=== PATIENT | male | born 1970 | race Caucasian/White ===

== ENCOUNTER 2016-09-04 15:44 | Emergency (ER) | payer BC ==
[2016-09-04] MEDS ORDERED: ASPIRIN 81 MG TABLET, CHEWABLE PO ONE (16:05)
--- NOTE | 2016-09-04 16:08 | ER Document Report ---
ED Medical Screen (RME) - General Stated Complaint: CHEST PAIN,NUMBNESS Notes: patient states he blacked out twice yesterday, is also having chest pain, numbness to hands and feet and nausea. Denies shortness of breath. Patient states he is experiencing some constipation, and occasionally sees blood in his stool, but denies that is what he is in the emergency room for. Patient states he has been told he has high blood pressure in the past, but is not on medications. I have greeted and performed a rapid initial assessment of this patient. A comprehensive ED assessment and evaluation of the patient, analysis of test results and completion of the medical decision making process will be conducted by additional ED providers. TRAVEL OUTSIDE OF THE [place] IN LAST 30 DAYS: No - Related Data Allergies/Adverse Reactions: Penicillins Allergy (Severe, Verified 09/04/16 16:03) Past Medical History - Past Medical History Cardiac Medical History: Reports: Hx Hypertension - not on meds Denies: Hx Coronary Artery Disease, Hx Heart Attack Pulmonary Medical History: Reports: Hx COPD - 10/2013 Denies: Hx Asthma, Hx Bronchitis, Hx Pneumonia Neurological Medical History: Denies: Hx Cerebrovascular Accident, Hx Seizures Musculoskeltal Medical History: Denies Hx Arthritis Psychiatric Medical History: Denies: Hx Depression Past Surgical History: Reports: Hx Appendectomy. Denies: Hx Pacemaker - Immunizations Hx Diphtheria, Pertussis, Tetanus Vaccination: Yes Physical Exam - Vital signs Vitals: Temp Pulse Resp BP Pulse Ox 98.4 F 91 18 146/103 H 95 09/04/16 15:54 09/04/16 15:54 09/04/16 15:54 09/04/16 15:54 09/04/16 15:54 - Cardiovascular Rhythm: Regular Heart sounds: Normal auscultation Course - Vital Signs Vital signs: Temp Pulse Resp BP Pulse Ox 98.4 F 91 18 146/103 H 95 09/04/16 15:54 09/04/16 15:54 09/04/16 15:54 09/04/16 15:54 09/04/16 15:54
[2016-09-04 16:48] LABS: ABSOLUTE EOSINOPHILS # (AUTO) 0.4 10^3/uL (0.0-0.6); ABSOLUTE LYMPHOCYTES (AUTO) 1.8 10^3/uL (0.5-4.7); ABSOLUTE MONOCYTES (AUTO) 0.7 10^3/uL (0.1-1.4); ABSOLUTE NEUT (AUTO) 6.9 10^3/uL (1.7-8.2); BASOPHILS % (AUTO) 0.3 % (0-2); EOSINOPHILS % (AUTO) 3.8 % (0-6); HEMATOCRIT 43.3 % (37.9-51.0); HEMOGLOBIN 14.8 g/dL (13.5-17.0); HGB HCT DIFFERENCE 1.1; LYMPHOCYTES % (AUTO) 18.4 % (13-45); MEAN CORPUSCULAR HEMOGLOBIN 29.7 pg (27.0-33.4); MEAN CORPUSCULAR HGB CONC 34.3 g/dL (32.0-36.0); MEAN CORPUSCULAR VOLUME 87 fl (80-97); MONOCYTES % (AUTO) 6.7 % (3-13); RED BLOOD COUNT 4.99 10^6/uL (4.35-5.55); RED CELL DISTRIBUTION WIDTH 13.8 % (11.5-14.0); SEGMENTED NEUTROPHILS % (AUTO) 70.8 % (42-78); WHITE BLOOD COUNT 9.7 10^3/uL (4.0-10.5)
[2016-09-04 17:00] LABS: APPEARANCE,URINE CLEAR; BILIRUBIN,URINE NEGATIVE (NEGATIVE); GLUCOSE, URINE NEGATIVE (NEGATIVE); KETONES,URINE NEGATIVE (NEGATIVE); LEUKOCYTE ESTERASE,URINE NEGATIVE (NEGATIVE); NITRITE,URINE NEGATIVE (NEGATIVE); PROTEIN,URINE NEGATIVE (NEGATIVE); URINE SPECIFIC GRAVITY 1.029; UROBILINOGEN,URINE NEGATIVE mg/dL (<2.0)
[2016-09-04 17:05] LABS: ALANINE AMINOTRANSFERASE 38 U/L (21-72); ALBUMIN 4.1 g/dL (3.5-5.0); ALKALINE PHOSPHATASE 83 U/L (38-126); ANION GAP 13 (5-19); ASPARTATE AMINO TRANSFERASE 23 U/L (17-59); BILIRUBIN,DIRECT 0.3 mg/dL (0.0-0.4); BILIRUBIN,TOTAL 0.5 mg/dL (0.2-1.3); BLOOD UREA NITROGEN 18 mg/dL (7-20); CALCIUM 9.8 mg/dL (8.4-10.2); CARBON DIOXIDE 26 mmol/L (22-30); CHLORIDE 105 mmol/L (98-107); CREATINE KINASE 223 U/L (55-170); CREATININE RESULT 1.19 mg/dL (0.52-1.25); GLUCOSE 135 mg/dL (75-110); POTASSIUM 4.4 mmol/L (3.6-5.0); SODIUM 144.2 mmol/L (137-145); TOTAL PROTEIN 6.7 g/dL (6.3-8.2)
[2016-09-04 17:15] LABS: CREATINE KINASE MB 8.81 ng/mL (<4.55)
[2016-09-04 17:18] LABS: TROPONIN I < 0.012 ng/mL
--- NOTE | 2016-09-04 18:28 | EKG REPORT ---
SEVERITY:- OTHERWISE NORMAL ECG - SINUS TACHYCARDIA : Confirmed by: Keenan Brody MD 04-Sep-2016 18:26:57
[2016-09-04] MEDS ORDERED: IPRATROPIUM/ALBUTEROL 0.5-2.5 MG/3 ML AMPUL NEB ONE (19:38)
--- NOTE | 2016-09-04 19:41 | ER Document Report ---
ED General - General Chief Complaint: Syncope Stated Complaint: CHEST PAIN,NUMBNESS Notes: Patient is a 45-year-old male that comes emergency department with several complaints. He states that he has been having sharp chest pain in the left side of his chest that lasts for a few seconds intermittently for the past week. He states that yesterday on 2 separate occasions. In the knee suddenly passed out for a few seconds and woke up on the floor. He denies getting any weird sensations, shortness of breath, chest pain, or dizziness before passing out. He states that he has not passed out today but his primary care was unable to see him today, urgent care sent him over here. Patient also admits that he has had sinus congestion with some shortness of breath and mild cough, denies fevers, he also states that he is intermittently having bright red stools including today. Patient has a past medical history of COPD, former smoker, hypertension but not treated for this, and colonoscopy at the age of 38 with polyp removal. TRAVEL OUTSIDE OF THE [place] IN LAST 30 DAYS: No - Related Data Allergies/Adverse Reactions: Penicillins Allergy (Severe, Verified 09/04/16 16:03) Home Medications: Current Home Medications Loratadine/Pseudoephedrine [Claritin-D 24 Hour Tablet] 1 tab PO DAILY 09/04/16 [ History] Past Medical History - General Information source: Patient - Social History Smoking Status: Former Smoker Chew tobacco use (# tins/day): No Frequency of alcohol use: None Drug Abuse: None Lives with: Family Family History: Reviewed & Not Pertinent Patient has suicidal ideation: No Patient has homicidal ideation: No - Past Medical History Cardiac Medical History: Reports: Hx Hypertension - not on meds Denies: Hx Coronary Artery Disease, Hx Heart Attack Pulmonary Medical History: Reports: Hx COPD - 10/2013 Denies: Hx Asthma, Hx Bronchitis, Hx Pneumonia Neurological Medical History: Denies: Hx Cerebrovascular Accident, Hx Seizures Renal/ Medical History: Denies: Hx Peritoneal Dialysis Musculoskeltal Medical History: Denies Hx Arthritis Psychiatric Medical History: Denies: Hx Depression Past Surgical History: Reports: Hx Appendectomy. Denies: Hx Pacemaker - Immunizations Hx Diphtheria, Pertussis, Tetanus Vaccination: Yes Hx Pneumococcal Vaccination: 10/15/13 Review of Systems - Review of Systems Constitutional: No symptoms reported EENT: See HPI Cardiovascular: See HPI Respiratory: See HPI Gastrointestinal: See HPI Genitourinary: No symptoms reported Male Genitourinary: No symptoms reported Musculoskeletal: No symptoms reported Skin: No symptoms reported Hematologic/Lymphatic: No symptoms reported Neurological/Psychological: No symptoms reported Physical Exam - Vital signs Vitals: Temp Pulse Resp BP Pulse Ox 98.4 F 91 18 146/103 H 95 09/04/16 15:54 09/04/16 15:54 09/04/16 15:54 09/04/16 15:54 09/04/16 15:54 Interpretation: Normal - General General appearance: Appears well, Alert - HEENT Head: Normocephalic, Atraumatic Eyes: Normal Conjunctiva: Normal Eyelashes: Normal Pupils: PERRL Ears: Normal External canal: Normal Tympanic membrane: Normal Sinus: Other - Patient sounds congested although the sinuses are nontender to palpation Nasal: Other - Mild congestion of the nasal passages with no significant swelling but no obstruction Mouth/Lips: Normal Mucous membranes: Normal Pharynx: Normal Neck: Normal - Respiratory Respiratory status: No respiratory distress. No: Respiratory distress, Tachypnea Chest status: Other - Very mild generalized nonspecific anterior chest wall tenderness Breath sounds: Normal, Nonproductive cough - Occasional mild cough, Wheezing - Very slight end expiratory wheezing heard in the right lung only Chest palpation: Normal - Cardiovascular Rhythm: Regular, Tachycardia - Borderline Heart sounds: Normal auscultation, S1 appreciated, S2 appreciated Murmur: No - Abdominal Inspection: Normal Distension: No distension Bowel sounds: Normal Tenderness: Nontender. No: Tender, Guarding Organomegaly: No organomegaly - Rectal Stool: Heme negative, See lab result. No: Black, Bloody Hemorrhoids: None. No: Internal, External, Anal fissure, Mass - Back Back: Normal, Nontender - Extremities General upper extremity: Normal inspection, Nontender, Normal color, Normal ROM , Normal temperature General lower extremity: Normal inspection, Nontender, Normal color, Normal ROM , Normal temperature, Normal weight bearing. No: Rebekah's sign - Neurological Neuro grossly intact: Yes Cognition: Normal Orientation: AAOx4 Stites Coma Scale Eye Opening: Spontaneous Stites Coma Scale Verbal: Oriented Stites Coma Scale Motor: Obeys Commands Stites Coma Scale Total: 15 Speech: Normal Motor strength normal: LUE, RUE, LLE, RLE Sensory: Normal - Psychological Associated symptoms: Normal affect, Normal mood - Skin Skin Temperature: Warm Skin Moisture: Dry Skin Color: Normal Course - Re-evaluation Re-evalutation: Patient is well appearing on examination except for some congestion and a faint wheeze heard on the right lung on initial examination which resolved with a DuoNeb. Borderline tachycardia, patient denying any shortness of breath, chest pain is intermittent and not present on my evaluation. EKG showing borderline sinus tachycardia, no ST segment or T-wave inversions in consecutive leads. 2 sets of troponins negative, CK to CK-MB ratio is less than 5. Patient was discussed with Dr. Gregory. Despite negative workup concerned because of patient's syncope without any prodromal symptoms which just suddenly occurred, recommends contacting cardiology to arrange for patient to get an echocardiogram and additional management. Called and spoke with Dr. Che, he recommends that patient's name be detected his number which he provided to me, he recommends the patient be seen in the clinic after 9 AM tomorrow, patient is in full agreement with this and states that he will definitely go. - Vital Signs Vital signs: Temp Pulse Resp BP Pulse Ox 98.4 F 91 23 H 127/114 H 96 09/04/16 15:54 09/04/16 15:54 09/04/16 22:01 09/04/16 22:01 09/04/16 22:01 - Laboratory Result Diagrams: 09/04/16 16:20 09/04/16 16:20 Laboratory results interpreted by me: 09/04/16 09/04/16 09/04/16 16:20 16:20 16:20 Glucose 135 H Creatine Kinase 223 H CK-MB (CK-2) 8.81 H Urine Ascorbic Acid 40 H 09/04/16 09/04/16 20:57 20:57 Glucose Creatine Kinase 238 H CK-MB (CK-2) 9.36 H Urine Ascorbic Acid Discharge - Discharge Clinical Impression: Syncope Qualifiers: Syncope type: unspecified Qualified Code(s): R55 - Syncope and collapse Sinusitis Qualifiers: Sinusitis location: other Chronicity: acute Recurrence: not specified as recurrent Qualified Code(s): J01.80 - Other acute sinusitis Chest pain Qualifiers: Chest pain type: unspecified Qualified Code(s): R07.9 - Chest pain, unspecified Condition: Stable Disposition: HOME, SELF-CARE Additional Instructions: I spoke with Dr. Che, cardiology, he is expecting you tomorrow in the office after 9 AM. Avoid any significant physical exertions until following up. Begin the antibiotic for sinus infection. Return to emergency department immediately for any returned or concerning worsening symptoms. Prescriptions: Doxycycline Hyclate 100 mg PO BID #14 capsule Forms: Return to Work Referrals: THAIS CHE MD [ACTIVE STAFF] - Follow up tomorrow
[2016-09-04] MEDS ORDERED: OXYCODONE-ACETAMINOPHEN 5-325 MG TABLET PO ONE (21:20)
[2016-09-04 21:36] LABS: CREATINE KINASE MB 9.36 ng/mL (<4.55)
[2016-09-04 21:39] LABS: TROPONIN I < 0.012 ng/mL
[2016-09-04 22:12] VITALS: BP 127/114
[2016-09-04] MEDS ORDERED: DOXYCYCLINE HYCLATE 100 MG TABLET PO ONE (22:15)
== END 2016-09-04 20:25 | disposition home or self-care (01) ==
LOC: ER 15:44
DX: J01.80 Other acute sinusitis (principal); R55 Syncope and collapse; R07.9 Chest pain, unspecified; R20.0 Anesthesia of skin; Z79.899 Other long term (current) drug therapy; Z87.891 Personal history of nicotine dependence
CPT/HCPCS: 93005; 94640; 99284; 36415; 82553; 82550; 85025; 82272; 80053; 81001; 84484; 71010; 93010; J7620

== ENCOUNTER 2017-05-03 08:06 | Day surgery (SDC) | payer BC ==
[~2017-05-03 08:06] MED LIST: DIPHENHYDRAMINE HCL 50 MG/ML VIAL ONE; EPINEPHRINE INJ 1 MG/10 ML DISP.SYRIN ONE; FLUMAZENIL INJ 0.5 MG/5 ML VIAL ONE; GLUCAGON,HUMAN RECOMB 1 MG INJ ONE; MIDAZOLAM 2 MG/2 ML INJ ONE; NALOXONE HCL INJ/PF 0.4 MG/1 ML SDV ONE; ONDANSETRON HCL INJ/PF 4 MG/2 ML SDV ONE
[2017-05-03] MEDS: MIDAZOLAM 2 MG/2 ML INJ ONE ×4 (08:55→09:13)
[2017-05-03] MEDS: FENTANYL CITRATE INJ/PF 100 MCG/2 ML AMPUL ONE ×2 (08:57→09:09)
--- NOTE | 2017-05-03 09:26 | Operative Report ---
Operative Report DATE OF SURGERY: 05/03/17 Operative Report: The risks, benefits and alternatives of the procedure including risks of bleeding, perforation requiring surgery are explained to the patient in detail and informed consent was obtained. Patient was placed in the left, lateral decubital position. Timeout was called. Conscious sedation medications are provided. A rectal examination is done which did not reveal any masses, tears or fissures. An Olympus videoscope was inserted into the patient's rectum. The scope was then carefully advanced all the way to the cecum. Cecum was identified by the usual anatomical landmarks including the ileocecal valve as well as the appendiceal office. Photodocumentation is obtained. Prep is good. The scope was then sequentially pulled back via the various segments of the colon including the ascending colon, hepatic flexure, transverse colon, splenic flexure, descending colon and finding to the rectosigmoid portions of the colon. Retroflexion maneuvers performed. PREOPERATIVE DIAGNOSIS: Personal history of polyps POSTOPERATIVE DIAGNOSIS: As a polyp in the descending colon which is essentially ablated in situ; there is a sessile polyp. Another in the sigmoid area snare polypectomy was attempted no tissue was retrieved. A rectal polyp more pedunculated in nature status post snare polypectomy and retrieved. Internal hemorrhoids OPERATION: Colonoscopy with snare polypectomy. Colonoscopy with the patient SURGEON: MIKE EUBANKS ANESTHESIA: Moderate Sedation - 6 mg of Versed, 125 mcg of fentanyl. Conscious sedation monitoring time 30 minutes. TISSUE REMOVED OR ALTERED: As noted above. COMPLICATIONS: None. ESTIMATED BLOOD LOSS: None. INTRAOPERATIVE FINDINGS: As noted above. PROCEDURE: Patient tolerated procedure well. No immediate postprocedure complications are noted. Patient discharged in good condition. Discharge date 05/03/2017. Discharge diet: Regular. Discharge activity: Regular. 2-3 week follow-up to discuss findings. 3-5 year surveillance colonoscopy. We will wait on pathology. Patient is instructed to call the office or proceed to the emergency room should there be any further problems or questions.
[2017-05-03] MEDS ORDERED: ACETAMINOPHEN 325 MG TABLET ONE (10:02)
[2017-05-03 11:00] VITALS: BP 111/75
== END 2017-05-03 10:33 | disposition home or self-care (01) ==
LOC: END 08:06
PROVIDERS: ATTEND Internal Medicine Gastroenterology
PROC: 0DBP8ZX Excision of Rectum, Via Natural or Artificial Opening Endoscopic, Diagnostic (ICD-10-PCS; principal; 2017-05-03 09:00)
PROC: 0D5M8ZZ Destruction of Descending Colon, Via Natural or Artificial Opening Endoscopic (ICD-10-PCS; 2017-05-03 09:00)
DX: Z12.11 Encounter for screening for malignant neoplasm of colon (principal); D12.8 Benign neoplasm of rectum; D12.4 Benign neoplasm of descending colon; D12.5 Benign neoplasm of sigmoid colon; K64.8 Other hemorrhoids; I10 Essential (primary) hypertension; J44.9 Chronic obstructive pulmonary disease, unspecified; Z79.899 Other long term (current) drug therapy; Z79.84 Long term (current) use of oral hypoglycemic drugs; Z87.891 Personal history of nicotine dependence; Z88.0 Allergy status to penicillin
CPT/HCPCS: 45385; 45388; 82962; 88305 ×2; J2250; J3010; J0171; J1200; J1610; J2310; J2405; J3490

== ENCOUNTER 2017-06-10 15:05 | Emergency (ER) | payer BC ==
--- NOTE | 2017-06-10 16:32 | ER Document Report ---
HPI - HPI Onset: Last week Onset/Duration: Gradual Pain Level: 4 Context: 46-year-old male complaining of sore throat mild cough and ear pain especially the left one for several days. No fever or chills. Left ear canal is itchy to begin with last week. No chest pain or shortness of breath. Associated Symptoms: None Exacerbated by: Movement - Left external ear Relieved by: Denies Similar symptoms previously: No Recently seen / treated by doctor: No - ROS ROS below otherwise negative: Yes Systems Reviewed and Negative: Yes All other systems reviewed and negative - REPRODUCTIVE Reproductive: DENIES: : Past Medical History - General Information source: Patient - Social History Smoking Status: Never Smoker Frequency of alcohol use: None Drug Abuse: None Lives with: Family Family History: Reviewed & Not Pertinent - Past Medical History Cardiac Medical History: Reports: Hx Hypertension Pulmonary Medical History: Reports: Hx COPD Renal/ Medical History: Denies: Hx Peritoneal Dialysis Musculoskeltal Medical History: Reports Hx Arthritis Psychiatric Medical History: Denies: Hx Depression Past Surgical History: Reports: Hx Appendectomy, Hx Cholecystectomy. Denies: Hx Pacemaker - Immunizations Hx Diphtheria, Pertussis, Tetanus Vaccination: Yes Hx Pneumococcal Vaccination: 06/17/11 Vertical Provider Document - CONSTITUTIONAL Agree With Documented VS: Yes Exam Limitations: No Limitations General Appearance: No Apparent Distress - INFECTION CONTROL TRAVEL OUTSIDE OF THE [place] IN LAST 30 DAYS: No - HEENT HEENT: Normocephalic. negative: Conjuctival Injection, Pharyngeal Erythema, Tympanic Membrane Bulging Notes: left ear canal inflamed, tender, no pre or post auricular nodes. TM's OK - NECK Neck: Supple. negative: Lymphadenopathy-Left, Lymphadenopathy-Right - RESPIRATORY Respiratory: Breath Sounds Normal, No Respiratory Distress O2 Sat by Pulse Oximetry: 96 - CARDIOVASCULAR Cardiovascular: Regular Rate, Regular Rhythm - NEURO Level of Consciousness: Awake, Alert, Appropriate - DERM Integumentary: Dry Course - Vital Signs Vital signs: Temp Pulse Resp BP Pulse Ox 98.3 F 90 16 116/75 96 06/10/17 15:14 06/10/17 15:14 06/10/17 15:14 06/10/17 15:14 06/10/17 15:14 Discharge - Discharge Clinical Impression: Left otitis externa Qualifiers: Otitis externa type: unspecified type Chronicity: acute Qualified Code(s): H60.502 - Unspecified acute noninfective otitis externa, left ear Condition: Good Disposition: HOME, SELF-CARE Instructions: Acetaminophen, Ciprofloxacin ([facility]), Use of Ear Drops ([facility]), Otitis Externa ([facility]), Steroid Medication Additional Instructions: return to er if worse see ENT if persist Referrals: DIOR BURROWS, [Primary Care Provider] - Follow up as needed
[2017-06-10] MEDS ORDERED: CIPROFLOXACIN HCL/DEXAMETH OTIC DROP 7.5 ML AS ONE ×2 (16:44→16:45)
[2017-06-10 17:01] VITALS: BP 110/76
== END 2017-06-10 17:05 | disposition home or self-care (01) ==
LOC: ER 15:05
DX: H60.502 Unspecified acute noninfective otitis externa, left ear (principal); J02.9 Acute pharyngitis, unspecified; I10 Essential (primary) hypertension; J44.9 Chronic obstructive pulmonary disease, unspecified; Z90.49 Acquired absence of other specified parts of digestive tract
CPT/HCPCS: 99282; J3490

== ENCOUNTER 2017-12-27 07:37 | Emergency (ER) | payer BC ==
[2017-12-27 07:41] VITALS: BP 117/69
--- NOTE | 2017-12-27 08:44 | RADIOLOGY REPORT (SQ) ---
EXAM DESCRIPTION: WRIST RIGHT 3 VIEWS COMPLETED DATE/TIME: 12/27/2017 8:30 am REASON FOR STUDY: pain and swelling COMPARISON: None. NUMBER OF VIEWS: Three views. TECHNIQUE: AP, lateral, and oblique radiographic images acquired of the right wrist. LIMITATIONS: None. FINDINGS: MINERALIZATION: Normal. BONES: No acute fracture or dislocation. No worrisome bone lesions. Normal alignment. SOFT TISSUES: No soft tissue swelling. No foreign body. OTHER: No other significant finding. IMPRESSION: NEGATIVE STUDY OF THE RIGHT WRIST. NO RADIOGRAPHIC EVIDENCE OF ACUTE INJURY. TECHNICAL DOCUMENTATION: JOB ID: [id number] [employer]- All Rights Reserved Reading location - IP/workstation name: [email or web address]
--- NOTE | 2017-12-27 09:02 | ER Document Report ---
HPI - HPI Patient complains to provider of: right wirst pain Onset: Other - few days Quality of pain: Achy, Throbbing Pain Level: 4 Context: 47 yo male c/o volar right wrist pain for several days, only taking care of his 3 month old . No specific injury. Some swelling. Associated Symptoms: None Exacerbated by: Movement Relieved by: Denies - ROS ROS below otherwise negative: Yes Systems Reviewed and Negative: Yes All other systems reviewed and negative - EENT EENT: DENIES: Sore Throat - NEURO Neurology: DENIES: Headache - CARDIOVASCULAR Cardiovascular: DENIES: Chest pain - GASTROINTESTINAL Gastrointestinal: DENIES: Abdominal Pain - URINARY Urinary: DENIES: Dysuria - REPRODUCTIVE Reproductive: DENIES: : - MUSCULOSKELETAL Musculoskeletal: REPORTS: Extremity pain - right hand Past Medical History - General Information source: Patient - Social History Smoking Status: Former Smoker Chew tobacco use (# tins/day): No Frequency of alcohol use: None Drug Abuse: None Lives with: Family Family History: Reviewed & Not Pertinent Patient has suicidal ideation: No Patient has homicidal ideation: No - Past Medical History Cardiac Medical History: Reports: Hx Hypertension Pulmonary Medical History: Reports: Hx COPD Renal/ Medical History: Denies: Hx Peritoneal Dialysis Musculoskeletal Medical History: Reports Hx Arthritis Past Surgical History: Reports: Hx Appendectomy, Hx Cholecystectomy. Denies: Hx Pacemaker - Immunizations Hx Diphtheria, Pertussis, Tetanus Vaccination: Yes Hx Pneumococcal Vaccination: 06/17/11 Vertical Provider Document - CONSTITUTIONAL Agree With Documented VS: Yes Exam Limitations: No Limitations General Appearance: No Apparent Distress - INFECTION CONTROL TRAVEL OUTSIDE OF THE [place] IN LAST 30 DAYS: No - HEENT HEENT: Normocephalic - MUSCULOSKELETAL/EXTREMETIES Musculoskeletal/Extremeties: MAEW, FROM, Tender - over volar wrist tendons, some swelling to wrist and hand, N/V intact, 5+ strength - NEURO Level of Consciousness: Alert Motor/Sensory: No Motor Deficit, No Sensory Deficit - DERM Integumentary: No Rash Course - Re-evaluation Re-evalutation: 12/27/17 09:15 X-ray negative per radiologist - Vital Signs Vital signs: Temp Pulse Resp BP Pulse Ox 97.9 F 83 18 117/69 96 12/27/17 07:40 12/27/17 07:40 12/27/17 07:40 12/27/17 07:40 12/27/17 07:40 Procedures - Immobilization Right Wrist Time completed: 08:30 Pre-Proc Neuro Vasc Exam: Normal Immobilizer type: Cock-up Performed by: RN Post-Proc Neuro Vasc Exam: Normal Alignment checked and good: Yes Discharge - Discharge Clinical Impression: Wrist sprain Qualifiers: Encounter type: initial encounter Laterality: left Qualified Code(s): S63.502A - Unspecified sprain of left wrist, initial encounter Condition: Good Disposition: HOME, SELF-CARE Instructions: Acetaminophen, Ibuprofen (General) ([facility]), Sling to be Used ([facility]) , Wrist Sprain ([facility]), Temporary Splint ([facility]) Additional Instructions: Wrist splint for comfort Motrin Tylenol Elevate the hand and the wrist See the orthopedist for follow-up Referrals: DIOR BURROWS DO [Primary Care Provider] - Follow up as needed ANDRÉS ASHRAF DO [ACTIVE STAFF] - Follow up as needed
== END 2017-12-27 09:24 | disposition home or self-care (01) ==
LOC: ER 07:37
DX: S63.502A Unspecified sprain of left wrist, initial encounter (principal); M25.531 Pain in right wrist; M79.89 Other specified soft tissue disorders; X58.XXXA Exposure to other specified factors, initial encounter; Z87.891 Personal history of nicotine dependence; I10 Essential (primary) hypertension; J44.9 Chronic obstructive pulmonary disease, unspecified
CPT/HCPCS: 99283; 73110; L3908

== ENCOUNTER → 2018-01-13 | Outpatient (CLI) | payer BC | LOC: OD 15:47 | PROVIDERS: ATTEND Nurse Practitioner Acute Care | DX: Z53.9 Procedure and treatment not carried out, unspecified reason (principal) ==

== ENCOUNTER → 2018-06-13 | Outpatient (CLI) | payer BC ==
--- NOTE | 2018-06-13 12:17 | RADIOLOGY REPORT (SQ) ---
EXAM DESCRIPTION: CHEST PA/LATERAL COMPLETED DATE/TIME: 06/13/2018 12:02 pm REASON FOR STUDY: COUGH COMPARISON: 09/04/2016 EXAM PARAMETERS: NUMBER OF VIEWS: two views TECHNIQUE: Digital Frontal and Lateral radiographic views of the chest acquired. RADIATION DOSE: NA LIMITATIONS: none FINDINGS: LUNGS AND PLEURA: No opacities, masses or pneumothorax. No pleural effusion. MEDIASTINUM AND HILAR STRUCTURES: No masses or contour abnormalities. HEART AND VASCULAR STRUCTURES: Heart normal size. No evidence for failure. BONES: No acute findings. HARDWARE: None in the chest. OTHER: No other significant finding. IMPRESSION: NO SIGNIFICANT RADIOGRAPHIC FINDING IN THE CHEST. TECHNICAL DOCUMENTATION: JOB ID: [id number] [employer]- All Rights Reserved Reading location - IP/workstation name: [email or web address]
[2018-06-13 12:28] LABS: A TYPE INFLUENZA AG NEGATIVE (NEGATIVE); B INFLUENZA AG NEGATIVE (NEGATIVE)
== END ==
LOC: OD 11:31
PROVIDERS: ATTEND Nurse Practitioner Family
DX: R05 Cough (principal); R68.89 Other general symptoms and signs
CPT/HCPCS: 71046; 86308; 87804

== ENCOUNTER 2018-11-02 11:50 | Emergency (ER) | payer BC ==
[2018-11-02] MEDS ORDERED: CLINDAMYCIN HCL 150 MG CAPSULE PO ONE (13:09)
[2018-11-02] MEDS ORDERED: HYDROCODONE/ACETAMINOPHEN 5-325 MG TABLET PO ONE (13:09)
--- NOTE | 2018-11-02 13:11 | ER Document Report ---
HPI - HPI Patient complains to provider of: toothache Time Seen by Provider: 11/02/18 12:51 Onset: Other - 3 days Onset/Duration: Persistent Quality of pain: Achy Pain Level: 5 Context: Patient reports dental pain to right lower jaw for the past 3 days. Patient denies any fever or facial swelling. Associated Symptoms: denies: Fever, Headache Exacerbated by: Denies Relieved by: Denies Similar symptoms previously: Yes Recently seen / treated by doctor: No - ROS ROS below otherwise negative: Yes Systems Reviewed and Negative: Yes All other systems reviewed and negative - CONSTITUTIONAL Constitutional: DENIES: Fever - RESPIRATORY Respiratory: DENIES: Coughing - GASTROINTESTINAL Gastrointestinal: DENIES: Nausea, Patient vomiting - REPRODUCTIVE Reproductive: DENIES: : - DERM Skin Color: Normal Skin Problems: None Past Medical History - General Information source: Patient - Social History Smoking Status: Never Smoker Frequency of alcohol use: Occasional Drug Abuse: None Occupation: none Family History: Reviewed & Not Pertinent - Past Medical History Cardiac Medical History: Reports: Hx Hypertension Pulmonary Medical History: Reports: Hx COPD Musculoskeletal Medical History: Reports Hx Arthritis Past Surgical History: Reports: Hx Appendectomy, Hx Cholecystectomy - Immunizations Hx Diphtheria, Pertussis, Tetanus Vaccination: Yes Hx Pneumococcal Vaccination: 06/17/11 Vertical Provider Document - CONSTITUTIONAL Agree With Documented VS: Yes Exam Limitations: No Limitations General Appearance: WD/WN, No Apparent Distress - INFECTION CONTROL TRAVEL OUTSIDE OF THE [place] IN LAST 30 DAYS: No - HEENT HEENT: Atraumatic, Normocephalic. negative: Pharyngeal Exudate, Pharyngeal Tenderness Mouth Diagram: 1 - Dental fracture, decay, no gingival abscess, no sublingual or submental swelling, no trismus - NECK Neck: Normal Inspection, Supple. negative: Lymphadenopathy-Left, Lymphadenopathy-Right - RESPIRATORY Respiratory: Breath Sounds Normal, No Respiratory Distress - CARDIOVASCULAR Cardiovascular: Regular Rate, Regular Rhythm - MUSCULOSKELETAL/EXTREMETIES Musculoskeletal/Extremeties: MAEW - NEURO Level of Consciousness: Awake, Alert, Appropriate Motor/Sensory: No Motor Deficit - DERM Integumentary: Warm, Dry, No Rash Course - Vital Signs Vital signs: Temp Pulse Resp BP Pulse Ox 98.1 F 78 20 127/87 H 94 11/02/18 11:54 11/02/18 11:54 11/02/18 11:54 11/02/18 11:54 11/02/18 11:54 Discharge - Discharge Clinical Impression: Toothache Condition: Stable Disposition: HOME, SELF-CARE Instructions: Clindamycin ([facility]), Toothache ([facility]) Additional Instructions: Return immediately for any new or worsening symptoms Followup with your primary care provider, call tomorrow to make a followup appointment Follow-up with a dental care provider for recheck Prescriptions: Clindamycin HCl [Cleocin 300 mg Capsule] 300 mg PO TID #21 capsule Naproxen [Naprosyn 250 Nmg Tablet] 1 tab PO BID #14 tablet Referrals: DIOR BURROWS DO [Primary Care Provider] - Follow up as needed [facility] [Provider Group] - Follow up tomorrow
[2018-11-02 13:20] VITALS: BP 132/80
== END 2018-11-02 13:17 | disposition home or self-care (01) ==
LOC: ER 11:50
DX: K02.9 Dental caries, unspecified (principal); K08.89 Other specified disorders of teeth and supporting structures; I10 Essential (primary) hypertension; J44.9 Chronic obstructive pulmonary disease, unspecified
CPT/HCPCS: 99282

== ENCOUNTER 2018-11-03 17:30 | Emergency (ER) | payer BC ==
[2018-11-03] MEDS ORDERED: CLINDAMYCIN 600 MG/D5W RTU 600 MG/50 ML RTUPB IV ONE (18:46)
--- NOTE | 2018-11-03 18:49 | ER Document Report ---
ED Medical Screen (RME) - General Chief Complaint: Facial Swelling Stated Complaint: SORE THROAT Time Seen by Provider: 11/03/18 18:40 Primary Care Provider: DIOR BURROWS DO [Primary Care Provider] - Follow up as needed Mode of Arrival: Ambulatory Information source: Patient TRAVEL OUTSIDE OF THE [place] IN LAST 30 DAYS: No - HPI Patient complains to provider of: RIGHT JAW PAIN/SWELLING Notes: 11/03/18 18:47 Patient here with complaints of right-sided facial swelling. He was seen yesterday with some right lower dental pain and was given a prescription for clindamycin. He had no swelling yesterday. Woke up this morning with right jaw, facial, lower lip and neck swelling. States that it hurts to swallow. He denies fevers. Exam Right lower second molar with fracture. Induration and tenderness to the gum in front of this area. No sublingual swelling or induration but mild tenderness. Swelling to the right mandible/submental area. Swelling to the right aspect of the lower lip. No stridor. Airway patent. Slight trismus. Plan CBC, CMP, blood cultures, saline lock, CT soft tissue neck with contrast, IV clindamycin. An initial examination was made on the patient as part of the triage process, and it was determined a more comprehensive evaluation was necessary. Initial labs were ordered and patient was transferred to another provider in the ED who assumed care and finished evaluation and plan. - Related Data Allergies/Adverse Reactions: Penicillins Allergy (Severe, Verified 11/02/18 11:51) Past Medical History - Social History Chew tobacco use (# tins/day): No Frequency of alcohol use: None Drug Abuse: None - Past Medical History Cardiac Medical History: Reports: Hx Hypertension Denies: Hx Coronary Artery Disease, Hx Heart Attack Pulmonary Medical History: Reports: Hx COPD Denies: Hx Asthma, Hx Bronchitis, Hx Pneumonia Neurological Medical History: Denies: Hx Cerebrovascular Accident, Hx Seizures Renal/ Medical History: Denies: Hx Peritoneal Dialysis Musculoskeltal Medical History: Reports Hx Arthritis Psychiatric Medical History: Denies: Hx Depression Past Surgical History: Reports: Hx Appendectomy, Hx Cholecystectomy. Denies: Hx Pacemaker - Immunizations Hx Diphtheria, Pertussis, Tetanus Vaccination: Yes Influenza Administration Date for 03/2017 - 08/2017 Season: 03/17/17 Physical Exam - Vital signs Vitals: Temp Pulse Resp BP Pulse Ox 98.2 F 108 H 16 148/85 H 93 11/03/18 18:22 11/03/18 18:22 11/03/18 18:22 11/03/18 18:22 11/03/18 18:22 Course - Vital Signs Vital signs: Temp Pulse Resp BP Pulse Ox 98.2 F 108 H 16 148/85 H 93 11/03/18 18:22 11/03/18 18:22 11/03/18 18:22 11/03/18 18:22 11/03/18 18:22 Doctor's Discharge - Discharge Referrals: DIOR BURROWS DO [Primary Care Provider] - Follow up as needed
[2018-11-03 19:10] LABS: ABSOLUTE EOSINOPHILS # (AUTO) 0.2 10^3/uL (0.0-0.6); ABSOLUTE LYMPHOCYTES (AUTO) 0.7 10^3/uL (0.5-4.7); ABSOLUTE MONOCYTES (AUTO) 0.8 10^3/uL (0.1-1.4); ABSOLUTE NEUT (AUTO) 9.7 10^3/uL (1.7-8.2); BASOPHILS % (AUTO) 0.2 % (0-2); EOSINOPHILS % (AUTO) 1.7 % (0-6); HEMATOCRIT 43.8 % (37.9-51.0); HEMOGLOBIN 14.7 g/dL (13.5-17.0); LYMPHOCYTES % (AUTO) 6.5 % (13-45); MEAN CORPUSCULAR HEMOGLOBIN 29.2 pg (27.0-33.4); MEAN CORPUSCULAR HGB CONC 33.6 g/dL (32.0-36.0); MEAN CORPUSCULAR VOLUME 87 fl (80-97); MONOCYTES % (AUTO) 6.9 % (3-13); PLATELET COUNT 179 10^3/uL (150-450); RED BLOOD COUNT 5.03 10^6/uL (4.35-5.55); RED CELL DISTRIBUTION WIDTH 14.3 % (11.5-14.0); SEGMENTED NEUTROPHILS % (AUTO) 84.7 % (42-78); TOTAL CELLS COUNTED % (AUTO) 100 %; WHITE BLOOD COUNT 11.4 10^3/uL (4.0-10.5)
[2018-11-03 19:28] LABS: ALANINE AMINOTRANSFERASE 32 U/L (21-72); ALBUMIN 4.4 g/dL (3.5-5.0); ALKALINE PHOSPHATASE 78 U/L (38-126); ANION GAP 12 (5-19); ASPARTATE AMINO TRANSFERASE 26 U/L (17-59); BILIRUBIN,DIRECT 0.3 mg/dL (0.0-0.4); BILIRUBIN,TOTAL 0.4 mg/dL (0.2-1.3); BLOOD UREA NITROGEN 17 mg/dL (7-20); CALCIUM 10.1 mg/dL (8.4-10.2); CARBON DIOXIDE 30 mmol/L (22-30); CHLORIDE 101 mmol/L (98-107); GLUCOSE 125 mg/dL (75-110); POTASSIUM 4.1 mmol/L (3.6-5.0); SODIUM 142.9 mmol/L (137-145); TOTAL PROTEIN 7.1 g/dL (6.3-8.2)
[2018-11-03] MEDS ORDERED: KETOROLAC TROMETHAMINE INJ/PF 30 MG/1 ML SDV IV ONE (20:06)
[2018-11-03] MEDS ORDERED: MORPHINE SULFATE 10 MG/ML INJ IV PRN (20:06)
--- NOTE | 2018-11-03 20:58 | RADIOLOGY REPORT (SQ) ---
CT NECK CHEST WITH IV CONTRAST HISTORY: Right facial swelling. COMPARISON: None. TECHNIQUE: CT scan of the neck with IV contrast. This exam was performed according to our departmental dose-optimization program, which includes automated exposure control, adjustment of the mA and/or kV according to patient size and/or use of iterative reconstruction technique. FINDINGS: There is diffuse subcutaneous edema with inflammatory stranding overlying the right neck region. No rim-enhancing fluid collection or abscess is seen. There are a few scattered periapical lucencies of the right mandibular teeth adjacent to the soft tissue swelling. There are mildly prominent right-sided cervical chain lymph nodes, likely reactive. The nasopharynx, oropharynx and hypopharynx are normal. No cervical mass or collection is seen. No aerodigestive tract mass is identified. The parotid, submandibular and thyroid glands are normal. The osseous structures are intact. There is sinus mucosal disease involving all the paranasal sinuses, greatest in the bilateral ethmoid air cells. The mastoid air cells are clear. IMPRESSION: 1. Diffuse swelling of the right neck which may represent cellulitis. 2. No evidence of abscess or osteomyelitis. 3. Multiple dental caries of the right mandibular teeth adjacent to the soft tissue swelling. Correlate with dental examination. 4. Sinus mucosal inflammatory disease.
[2018-11-03] MEDS ORDERED: HYDROCODONE/ACETAMINOPHEN 5-325 MG (6 TAB/ER DISP) PO PRN (21:55)
--- NOTE | 2018-11-03 21:58 | ER Document Report ---
ED General - General Chief Complaint: Facial Swelling Stated Complaint: SORE THROAT Time Seen by Provider: 11/03/18 18:40 Primary Care Provider: DIOR BURROWS DO [Primary Care Provider] - Follow up as needed Mode of Arrival: Ambulatory Notes: Patient is a 47-year-old male with past medical history of hypertension hyperlipidemia who presents with 3 to 4 days of progressively worsening swelling and pain to the right mandible. Patient was seen yesterday for right mandibular molar dental caries, started on clindamycin. Returns today because he has been having worsening swelling of the face. Has taken a total of 4 doses of clindamycin. She is scheduled to see his dentist in the morning. He notes a throbbing, aching, constant pain that is severe in nature to the affected area. He has been trying naproxen with no relief. Nothing worsens his symptoms. He denies any difficulty breathing or swallowing. Has not had fever. No history of similar symptoms in the past. TRAVEL OUTSIDE OF THE [place] IN LAST 30 DAYS: No - Related Data Allergies/Adverse Reactions: Penicillins Allergy (Severe, Verified 11/02/18 11:51) Past Medical History - General Information source: Patient - Social History Smoking Status: Never Smoker Chew tobacco use (# tins/day): No Frequency of alcohol use: None Drug Abuse: None Family History: Reviewed & Not Pertinent Patient has suicidal ideation: No Patient has homicidal ideation: No - Past Medical History Cardiac Medical History: Reports: Hx Hypertension Denies: Hx Coronary Artery Disease, Hx Heart Attack Pulmonary Medical History: Reports: Hx COPD Denies: Hx Asthma, Hx Bronchitis, Hx Pneumonia Neurological Medical History: Denies: Hx Cerebrovascular Accident, Hx Seizures Renal/ Medical History: Denies: Hx Peritoneal Dialysis Musculoskeletal Medical History: Reports Hx Arthritis Psychiatric Medical History: Denies: Hx Depression Past Surgical History: Reports: Hx Appendectomy, Hx Cholecystectomy. Denies: Hx Pacemaker - Immunizations Hx Diphtheria, Pertussis, Tetanus Vaccination: Yes Hx Pneumococcal Vaccination: 06/17/11 Review of Systems - Review of Systems Notes: Constitutional: Negative for fever. HENT: Positive for facial swelling and dental pain Eyes: Negative for visual changes. Cardiovascular: Negative for chest pain. Respiratory: Negative for shortness of breath. Gastrointestinal: Negative for abdominal pain, vomiting or diarrhea. Genitourinary: Negative for dysuria. Musculoskeletal: Negative for back pain. Skin: Negative for rash. Neurological: Negative for headaches, weakness or numbness. 10 point ROS negative except as marked above and in HPI. Physical Exam - Vital signs Vitals: Temp Pulse Resp BP Pulse Ox 98.2 F 108 H 16 148/85 H 93 11/03/18 18:22 11/03/18 18:22 11/03/18 18:22 11/03/18 18:22 11/03/18 18:22 Interpretation: Tachycardic Notes: PHYSICAL EXAMINATION: GENERAL: Appears moderately uncomfortable but in no acute distress HEAD: Atraumatic, normocephalic. EYES: Pupils equal round and reactive to light, extraocular movements intact, sclera anicteric, conjunctiva are normal. ENT: nares patent, diffusely poor dentition. 3 posterior right mandibular molars all have diffuse dental caries. There is mild swelling to the right mandibular region. No airway edema. No stridor. No muffling of voice. Able to drink a glass of water in front of me without any difficulties. NECK: Normal range of motion, supple without lymphadenopathy LUNGS: Breath sounds clear to auscultation bilaterally and equal. No wheezes rales or rhonchi. HEART: Regular rate and rhythm without murmurs ABDOMEN: Soft, nontender, normoactive bowel sounds. No guarding, no rebound. No masses appreciated. EXTREMITIES: Normal range of motion, no pitting or edema. No cyanosis. NEUROLOGICAL: No focal neurological deficits. Moves all extremities spontaneously and on command. PSYCH: Normal mood, normal affect. SKIN: Warm, Dry, normal turgor, no rashes or lesions noted. Course - Re-evaluation Re-evalutation: 11/03/18 21:57 Patient presents with right facial mandibular swelling with multiple dental caries along all of the right back molars. A CT scan of the face was obtained in triage and demonstrates findings consistent with swelling along the right face although I did do not see any swelling on the right neck as documented on the CT report. There is no evidence of abscess or osteomyelitis. The patient does not have any stridor, no difficulty breathing, able to drink a glass of water in front of me without any difficulty. He has only been on antibiotics for 24 hours and I do believe that he needs to continue these antibiotics as planned. There is no improved efficacy have IV clindamycin versus oral clindamycin and given that I do not currently have any concern for airway protection needs I do not see any benefit hospitalizing patient at this time particularly given that he has dentistry follow-up in the morning. Patient is very much so in agreement. At this time will discharge with return precautions and follow-up recommendations. Verbal discharge instructions given a the bedside and opportunity for questions given. Medication warnings reviewed. Patient is in agreement with this plan and has verbalized understanding of ret urn precautions and the need for follow-up with his dentist in the morning. - Vital Signs Vital signs: Temp Pulse Resp BP Pulse Ox 98.7 F 86 18 141/89 H 96 11/03/18 22:04 11/03/18 22:04 11/03/18 22:04 11/03/18 22:04 11/03/18 22:04 - Laboratory Result Diagrams: 11/03/18 18:53 11/03/18 18:53 Laboratory results interpreted by me: 11/03/18 11/03/18 18:53 18:53 WBC 11.4 H RDW 14.3 H Seg Neutrophils % 84.7 H Lymphocytes % 6.5 L Absolute Neutrophils 9.7 H Glucose 125 H - Diagnostic Test Radiology reviewed: Reports reviewed Discharge - Discharge Clinical Impression: Facial swelling, Dental infection Condition: Stable Disposition: HOME, SELF-CARE Additional Instructions: Continue to take clindamycin which was prescribed to you yesterday. You may use the [place] with which you have been sent home for pain. You need to follow-up very closely with your dentist tomorrow morning as planned given the degree of swelling and infection. CT scan today is included in your report does not show evidence of an abscess but does show some swelling of your face associated with your dental infection. You need to return to the emergency department imme diately if you develop inability to swallow, difficulty breathing, fever greater than 101 F, or any other symptoms that are worrisome to you. Referrals: DIOR BURROWS, [Primary Care Provider] - Follow up as needed
[2018-11-03 22:04] VITALS: BP 141/89
== END 2018-11-03 22:04 | disposition home or self-care (01) ==
LOC: ER 17:30
DX: K04.7 Periapical abscess without sinus (principal); R22.0 Localized swelling, mass and lump, head; I10 Essential (primary) hypertension; E78.5 Hyperlipidemia, unspecified; Z88.0 Allergy status to penicillin; Z90.49 Acquired absence of other specified parts of digestive tract
CPT/HCPCS: 99284; 96375; 96365; 36415; 87040; 85025; 87077; 80053; 70491; J1885; J2270; 87186

== ENCOUNTER → 2018-11-25 | Outpatient (CLI) | payer BC ==
--- NOTE | 2018-11-25 16:13 | RADIOLOGY REPORT (SQ) ---
EXAM DESCRIPTION: LUMBAR SPINE COMPLETE COMPLETED DATE/TIME: 11/25/2018 3:52 pm REASON FOR STUDY: ACUTE LEFT SIDED LOW BACK PAIN WITHOUT SCIATICA M54.5 LOW BACK PAIN COMPARISON: None. NUMBER OF VIEWS: Five views including obliques. TECHNIQUE: AP, lateral, oblique, and sacral radiographic images acquired of the lumbar spine. LIMITATIONS: None. FINDINGS: MINERALIZATION: Normal. SEGMENTATION: Normal. No transitional anatomy. ALIGNMENT: Normal. VERTEBRAE: Maintained height. No fracture or worrisome bone lesion. DISCS: Multilevel disc space narrowing. Very small anterior osteophytes and posterior osteophytes w hich encroach on the neuroforamina, particularly at L4-5. POSTERIOR ELEMENTS: Pedicles and facets are intact. No pars defect or posterior arch defects. HARDWARE: None in the spine. PARASPINAL SOFT TISSUES: Normal. PELVIS: Intact as visualized. No fractures or worrisome bone lesions. SI joints intact. OTHER: Gallstone. IMPRESSION: 1. Degenerative mild to moderate disc disease and small posterior osteophytes encroachi ng on the neuroforamina, particularly at L4-5. 2. No acute osseous findings. 3. Gallstone. TECHNICAL DOCUMENTATION: JOB ID: [id number] [employer]- All Rights Reserved Reading location - IP/workstation name: [email or web address]
== END ==
LOC: OD 15:39
PROVIDERS: ATTEND Family Medicine
DX: M51.36 Other intervertebral disc degeneration, lumbar region (principal); M54.5 Low back pain; K80.80 Other cholelithiasis without obstruction
CPT/HCPCS: 72110

== ENCOUNTER → 2018-12-24 | Outpatient (CLI) | payer OTHER ==
[~2018-12-24] MED LIST changes: +ALBUTEROL SULFATE 0.083% NEB 2.5 MG/3 ML AMPUL NEB ONE; -DIPHENHYDRAMINE HCL 50 MG/ML VIAL ONE; -EPINEPHRINE INJ 1 MG/10 ML DISP.SYRIN ONE; -FLUMAZENIL INJ 0.5 MG/5 ML VIAL ONE; -GLUCAGON,HUMAN RECOMB 1 MG INJ ONE; -MIDAZOLAM 2 MG/2 ML INJ ONE; -NALOXONE HCL INJ/PF 0.4 MG/1 ML SDV ONE; -ONDANSETRON HCL INJ/PF 4 MG/2 ML SDV ONE
--- NOTE | 2018-12-24 13:12 | Pulmonary Function Test ---
Pulmonary Function Test Date of Procedure:: 12/24/18 INDICATION:: Dyspnea Referring Provider: Dr. Guillaume Heredia Occupational Therapist Rehab Manager: Traci Sher, G[employer] CH[employer]PER,CONTROLLED ATMOSPHERIC FURNACE BRAZER - Report Spirometry: Spirometry: pre-FVC:3.44L 57% post-FVC[4.52 L 89%] pre-FEV:1[2.00 L 48%] post-FEV1;[2.69 L 85%] pre-FEV1/FVC %[58] post-FEV1/FVC%[80] predicted [81] wtg-[id number]%[0.96 L 23%] [id number]-[id number]%[1.33 L 32%] def aults Impression: Moderate obstructive ventilatory defect good response to bronchodilator therapy. Presents of restrictive defect is implied by the decrease in FVC. Restrictive defect can only be diagnosed without complete pulmonary function test. Restrictive defect may mask the degree of obstruction. If clinically indicated complete PFTs would be warranted
== END ==
LOC: RT 08:17
DX: J44.9 Chronic obstructive pulmonary disease, unspecified (principal); R06.00 Dyspnea, unspecified; I10 Essential (primary) hypertension; E11.9 Type 2 diabetes mellitus without complications
CPT/HCPCS: 94060

== ENCOUNTER 2019-05-07 10:45 | Emergency (ER) | payer SELFPAY ==
[2019-05-07] MEDS ORDERED: OXYCODONE-ACETAMINOPHEN 5-325 MG TABLET PO ONE (11:03)
--- NOTE | 2019-05-07 11:06 | ER Document Report ---
ED Medical Screen (RME) - General Chief Complaint: Foot Pain Stated Complaint: RIGHT FOOT PAIN Time Seen by Provider: 05/07/19 10:59 Primary Care Provider: DIOR BURROWS DO [Primary Care Provider] - Follow up as needed TRAVEL OUTSIDE OF THE [place] IN LAST 30 DAYS: No - HPI Notes: 05/07/19 11:04 48-year-old male to the emergency department complains of right foot pain that began yesterday. He states that over the weekend he was stepping on pieces of wood to break them up and then he started to notice pain after he was carrying a large please apply what. He denies any blunt trauma. States that he can only wear open toed flip-flops due to pain. He does not have a history of gout. He is a diabetic and hypertensive patient. He denies any fevers or chills. I performed a brief medical screening exam on the patient determined he will need further evaluation and management by main side ER provider. I have placed initial orders to expedite his care. - Related Data Allergies/Adverse Reactions: Penicillins Allergy (Severe, Verified 05/07/19 10:58) lisinopril Allergy (Verified 05/07/19 10:59) Past Medical History - Social History Chew tobacco use (# tins/day): No Frequency of alcohol use: None Drug Abuse: None - Past Medical History Cardiac Medical History: Reports: Hx Hypertension Denies: Hx Coronary Artery Disease, Hx Heart Attack Pulmonary Medical History: Reports: Hx COPD Denies: Hx Asthma, Hx Bronchitis, Hx Pneumonia Neurological Medical History: Denies: Hx Cerebrovascular Accident, Hx Seizures Renal/ Medical History: Denies: Hx Peritoneal Dialysis Musculoskeltal Medical History: Reports Hx Arthritis Psychiatric Medical History: Denies: Hx Depression Past Surgical History: Reports: Hx Appendectomy, Hx Cholecystectomy. Denies: Hx Pacemaker - Immunizations Hx Diphtheria, Pertussis, Tetanus Vaccination: Yes Physical Exam - Vital signs Vitals: Temp Pulse Resp BP Pulse Ox 97.6 F 86 18 131/82 H 96 05/07/19 10:52 05/07/19 10:52 05/07/19 10:52 05/07/19 10:52 05/07/19 10:52 Course - Vital Signs Vital signs: Temp Pulse Resp BP Pulse Ox 97.6 F 86 18 131/82 H 96 05/07/19 10:52 05/07/19 10:52 05/07/19 10:52 05/07/19 10:52 05/07/19 10:52 Doctor's Discharge - Discharge Referrals: DIOR BURROWS DO [Primary Care Provider] - Follow up as needed
[2019-05-07 11:34] LABS: ABSOLUTE EOSINOPHILS # (AUTO) 0.2 10^3/uL (0.0-0.6); ABSOLUTE LYMPHOCYTES (AUTO) 1.6 10^3/uL (0.5-4.7); ABSOLUTE MONOCYTES (AUTO) 0.6 10^3/uL (0.1-1.4); ABSOLUTE NEUT (AUTO) 3.2 10^3/uL (1.7-8.2); BASOPHILS % (AUTO) 0.4 % (0-2); EOSINOPHILS % (AUTO) 3.1 % (0-6); HEMATOCRIT 44.9 % (37.9-51.0); HEMOGLOBIN 15.2 g/dL (13.5-17.0); MEAN CORPUSCULAR VOLUME 88 fl (80-97); MONOCYTES % (AUTO) 11.2 % (3-13); PLATELET COUNT 164 10^3/uL (150-450); RED BLOOD COUNT 5.08 10^6/uL (4.35-5.55); RED CELL DISTRIBUTION WIDTH 13.7 % (11.5-14.0); SEGMENTED NEUTROPHILS % (AUTO) 57.3 % (42-78); TOTAL CELLS COUNTED % (AUTO) 100 %; WHITE BLOOD COUNT 5.6 10^3/uL (4.0-10.5)
[2019-05-07 11:45] LABS: ALBUMIN 4.3 g/dL (3.5-5.0); ALKALINE PHOSPHATASE 75 U/L (38-126); ANION GAP 8 (5-19); ASPARTATE AMINO TRANSFERASE 29 U/L (17-59); BILIRUBIN,DIRECT 0.1 mg/dL (0.0-0.4); BILIRUBIN,TOTAL 0.5 mg/dL (0.2-1.3); BLOOD UREA NITROGEN 18 mg/dL (7-20); CALCIUM 9.3 mg/dL (8.4-10.2); CARBON DIOXIDE 28 mmol/L (22-30); CHLORIDE 104 mmol/L (98-107); GLUCOSE 106 mg/dL (75-110); POTASSIUM 4.1 mmol/L (3.6-5.0); TOTAL PROTEIN 7.1 g/dL (6.3-8.2); URIC ACID 7.7 mg/dL (3.5-8.5)
--- NOTE | 2019-05-07 11:49 | RADIOLOGY REPORT (SQ) ---
EXAM DESCRIPTION: FOOT RIGHT COMPLETE COMPLETED DATE/TIME: 05/07/2019 11:30 am REASON FOR STUDY: foot pain COMPARISON: None. NUMBER OF VIEWS: Three views. TECHNIQUE: AP, lateral and oblique radiographic images acquired of the right foot. LIMITATIONS: None. FINDINGS: MINERALIZATION: Normal. BONES: No acute fracture or dislocation. No worrisome bone lesions. JOINTS: No effusions. SOFT TISSUES: Focal soft tissue swelling along the 1st metatarsophalangeal joint. No foreign body. OTHER: No other significant finding. IMPRESSION: Soft tissue swelling along the right 1st metatarsophalangeal joint. No underlying aggre ssive bony erosions. No fracture. TECHNICAL DOCUMENTATION: JOB ID: [id number] [facility]- All Rights Reserved Reading location - IP/workstation name: [email or web address]
--- NOTE | 2019-05-07 15:22 | ER Document Report ---
ED Extremity Problem, Lower - General Chief Complaint: Foot Pain Stated Complaint: RIGHT FOOT PAIN Time Seen by Provider: 05/07/19 10:59 Primary Care Provider: DIOR BURROWS DO [Primary Care Provider] - Follow up as needed Notes: Mr. Shi is a 48 yo m w/ PMH hypertension and diabetes presenting to the ED for right foot pain. Patient states that yesterday he was breaking upward with his foot for firewood with an open toe flip-flop. He endorses pain over the mid dorsum of the foot. He denies any trauma or breaking of skin. He denies any falls. He denies any recent increase intake in foods high in purine such as shellfish, aged cheeses or beer pain. Patient states that he does not drink any alcohol. Patient states he did not take any Motrin as he has history of liver failure and was told by his primary care doctor never to take Motrin again. Patient denies any fevers, chills, swelling or any other complaints at this point in time. He does state that he has a chronic burning sensation to the bottom of the foot bilaterally which she has had for many years. He also adds that he has had a small rash on bilateral feet which she is also had for many years. TRAVEL OUTSIDE OF THE [place] IN LAST 30 DAYS: No - Related Data Allergies/Adverse Reactions: Penicillins Allergy (Severe, Verified 05/07/19 10:58) lisinopril Allergy (Verified 05/07/19 10:59) Past Medical History - Social History Smoking Status: Never Smoker Chew tobacco use (# tins/day): No Frequency of alcohol use: None Drug Abuse: None Family History: Reviewed & Not Pertinent Patient has suicidal ideation: No Patient has homicidal ideation: No - Past Medical History Cardiac Medical History: Reports: Hx Hypertension Denies: Hx Coronary Artery Disease, Hx Heart Attack Pulmonary Medical History: Reports: Hx COPD Denies: Hx Asthma, Hx Bronchitis, Hx Pneumonia Neurological Medical History: Denies: Hx Cerebrovascular Accident, Hx Seizures Endocrine Medical History: Reports: Hx Diabetes Mellitus Type 2 Renal/ Medical History: Denies: Hx Peritoneal Dialysis Musculoskeletal Medical History: Reports Hx Arthritis Psychiatric Medical History: Denies: Hx Depression Past Surgical History: Reports: Hx Appendectomy, Hx Cholecystectomy. Denies: Hx Pacemaker - Immunizations Hx Diphtheria, Pertussis, Tetanus Vaccination: Yes Hx Pneumococcal Vaccination: 06/17/11 Review of Systems - Review of Systems Constitutional: See HPI EENT: No symptoms reported Cardiovascular: No symptoms reported Respiratory: No symptoms reported Gastrointestinal: No symptoms reported Genitourinary: No symptoms reported Male Genitourinary: No symptoms reported Musculoskeletal: No symptoms reported Skin: No symptoms reported Hematologic/Lymphatic: No symptoms reported Neurological/Psychological: No symptoms reported Physical Exam - Vital signs Vitals: Temp Pulse Resp BP Pulse Ox 97.6 F 86 18 131/82 H 96 05/07/19 10:52 05/07/19 10:52 05/07/19 10:52 05/07/19 10:52 05/07/19 10:52 Interpretation: Normal - General General appearance: Appears well, Alert - HEENT Head: Normocephalic, Atraumatic Eyes: Normal Pupils: PERRL - Respiratory Respiratory status: No respiratory distress Chest status: Nontender Breath sounds: Normal Chest palpation: Normal - Cardiovascular Rhythm: Regular Heart sounds: Normal auscultation Murmur: No - Abdominal Inspection: Normal Distension: No distension Bowel sounds: Normal Tenderness: Nontender Organomegaly: No organomegaly - Back Back: Normal, Nontender - Extremities General upper extremity: Normal inspection, Nontender, Normal color, Normal ROM, Normal temperature General lower extremity: Normal inspection, Nontender, Normal color, Normal ROM, Normal temperature, Normal weight bearing. No: Rebekah's sign - Neurological Neuro grossly intact: Yes Cognition: Normal Orientation: AAOx4 Winthrop Coma Scale Eye Opening: Spontaneous Marlo Coma Scale Verbal: Oriented Marlo Coma Scale Motor: Obeys Commands Winthrop Coma Scale Total: 15 Speech: Normal Motor strength normal: LUE, RUE, LLE, RLE Sensory: Normal - Psychological Associated symptoms: Normal affect, Normal mood - Skin Skin Temperature: Warm Skin Moisture: Dry Skin Color: Normal Skin irregularity: Rash Location of irregularity: Extremities - Irregular shaped rash erythematous in nature and scaling with some dry skin to bilateral feet and under foot. Rash has an irregular border with some satellite lesions. Course - Re-evaluation Re-evalutation: Patient is generally well-appearing and nontoxic. Initial vitals within normal limits. Differential diagnosis includes contusion, foreign body, gout (less likely), stress fracture 05/07/19 15:20 Labs and x-ray were obtained from triage. Labs otherwise unremarkable including creatinine. No evidence of kidney failure. Patient's GFR is greater than 60. X-ray of the foot is otherwise unremarkable without evidence of fracture. There is some mild swelling. However the rash is consistent with a fungal foot infect ion bilaterally. Patient will be prescribed antifungal medications are recommended to take [id number]. Patient given return precautions instructed to use Motrin, and Tylenol as needed. However patient refused Motrin here in the ED. He was given Percocet on arrival from triage for pain control. Patient will be Wilber wrap and recommended to rest, ice and elevate his foot. - Vital Signs Vital signs: Temp Pulse Resp BP Pulse Ox 97.6 F 86 18 131/82 H 96 05/07/19 10:52 05/07/19 10:52 05/07/19 10:52 05/07/19 10:52 05/07/19 10:52 - Laboratory Result Diagrams: 05/07/19 11:17 05/07/19 11:17 Laboratory results interpreted by me: 05/07/19 11:17 Creatinine 1.36 H Est GFR (MDRD) Non-Af 55 L Discharge - Discharge Clinical Impression: Right foot pain, Fungal infection of foot Condition: Good Disposition: HOME, SELF-CARE Instructions: Skin Fungus ([facility]), Ice & Elevation ([facility]), Elevate the Injury ([facility]) Additional Instructions: I would recommend that you rest, ice, elevate and compress your foot with the Wilber wrap. I would also recommend that you use Motrin 800 mg every 6-8 hours as needed for the pain as NSAIDs are the most efficient in providing musculoskeletal pain relief. You do not have any evidence of any failure on the labs performed today. X-ray was negative for any fracture, or dislocation. It is important that you apply antifungal medication to bilateral feet as you do have a foot fungal infection. I would also recommend that you wear a thick cot ton socks to help absorb the moisture. Prescriptions: Griseofulvin [Griseofulvin Micronized] 500 gm MC BID #60 powder Referrals: DIOR BURROWS DO [Primary Care Provider] - Follow up as needed
[2019-05-07 15:37] VITALS: BP 128/64
== END 2019-05-07 15:37 | disposition home or self-care (01) ==
LOC: ER 10:45
DX: B35.3 Tinea pedis (principal); M79.671 Pain in right foot; I10 Essential (primary) hypertension; E11.9 Type 2 diabetes mellitus without complications; Z88.0 Allergy status to penicillin; Z88.8 Allergy status to other drugs, medicaments and biological substances; J44.9 Chronic obstructive pulmonary disease, unspecified
CPT/HCPCS: 36415; 80053; 84550; 85025; 99283

== ENCOUNTER → 2019-10-29 | Outpatient (CLI) | payer BC ==
--- NOTE | 2019-10-29 18:20 | RADIOLOGY REPORT (SQ) ---
EXAM DESCRIPTION: VENOUS UNILATERAL LOWER IMAGES COMPLETED DATE/TIME: 10/29/2019 6:06 pm REASON FOR STUDY: LLE CRAMPS R25.2 CRAMP AND SPASM COMPARISON: None. TECHNIQUE: Dynamic and static stevens scale and color images acquired of the left leg venous system. Se lected spectral images acquired with additional compression and augmentation maneuvers. The contralat eral common femoral vein and saphenofemoral junction were also imaged. Images stored on PACS. LIMITATIONS: None. FINDINGS: COMMON FEMORAL: Normal phasicity, compression and augmentation. No visualized echogenic ma terial on stevens scale. No defects on color images. FEMORAL: Normal compression and augmentation. No visualized echogenic material on stevens scale. No defe cts on color images. POPLITEAL: Normal compression, augmentation. No visualized echogenic material on stevens scale. No defec ts on color images. CALF VESSELS: Normal compression, augmentation. No visualized echogenic material on stevens scale. No de fects on color images. GSV and SSV: Normal compression, augmentation. No visualized echogenic material on stevens scale. No def ects on color images. ANY DEEP VENOUS INSUFFICIENCY: Not evaluated. ANY EVIDENCE OF POPLITEAL CYST: No. OTHER: No other significant finding. CONTRALATERAL COMMON FEMORAL VEIN: Normal phasicity, compression and augmentation. No visualized echogenic material on stevens scale. No de fects on color images. IMPRESSION: 1. NO EVIDENCE OF DVT OR SVT IN THE LEFT LEG. COMMENT: 1. The preliminary results were called to the office at 18:00 hours on 10/29/2019. TECHNICAL DOCUMENTATION: JOB ID: [id number] [employer]- All Rights Reserved Reading location - IP/workstation name: [email or web address]
== END ==
LOC: SP 17:20
PROVIDERS: ATTEND Nurse Practitioner Family
DX: R25.2 Cramp and spasm (principal)
CPT/HCPCS: 93971

== ENCOUNTER 2019-11-30 18:07 | Emergency (ER) | payer BC ==
[2019-11-30 18:19] VITALS: BP 153/97
== END 2019-11-30 18:44 | disposition left against medical advice (07) ==
LOC: ER 18:07
DX: Z53.21 Procedure and treatment not carried out due to patient leaving prior to being seen by health care provider (principal); M25.569 Pain in unspecified knee

== ENCOUNTER 2019-12-01 09:32 | Emergency (ER) | payer BC ==
[2019-12-01] MEDS ORDERED: OXYCODONE-ACETAMINOPHEN 5-325 MG TABLET PO ONE (11:42)
--- NOTE | 2019-12-01 11:47 | RADIOLOGY REPORT (SQ) ---
EXAM DESCRIPTION: KNEE RIGHT 3 VIEWS IMAGES COMPLETED DATE/TIME: 12/01/2019 11:20 am REASON FOR STUDY: Right knee pain COMPARISON: None. NUMBER OF VIEWS: Three views. TECHNIQUE: AP, lateral, and single oblique radiographic images acquired of the right knee. LIMITATIONS: Cross-table lateral image with suboptimal closure. FINDINGS: MINERALIZATION: Normal. BONES: No acute fracture or dislocation. No worrisome bone lesions. Incidental note is made of juan llar enthesopathy. JOINT: A small joint effusion may be present. Ill-defined increased density projecting in the region of the lateral tibial plateau on the frontal radiograph only may represent a partially calcified int raarticular body or focal chondrocalcinosis. SOFT TISSUES: No soft tissue swelling. No radio-opaque foreign body. OTHER: No other significant finding. IMPRESSION: No evidence of acute osseous injury. Subtle finding seen on the frontal radiograph only may represent a partially calcified intraarticular body or chondrocalcinosis. TECHNICAL DOCUMENTATION: JOB ID: [id number] 2010 [employer]- All Rights Reserved Reading location - IP/workstation name: [email or web address]
--- NOTE | 2019-12-01 11:59 | ER Document Report ---
Entered by JORGE NEWMAN SCRIBE 12/01/19 1154 Acting as scribe for:UDAY MICHELLE MD ED Extremity Problem, Lower - General Chief Complaint: Knee Pain Stated Complaint: RIGHT KNEE PAIN Time Seen by Provider: 12/01/19 11:29 Primary Care Provider: DIOR BURROWS DO [Primary Care Provider] - Follow up as needed Mode of Arrival: Ambulatory Information source: Patient Notes: This 48-year-old male patient presents to the emergency department today with complaints of right knee pain that he first noticed two days ago. Patient states that two days ago he "must have been sleep walking", as he was awoken by his at 3:00 AM sleeping on the couch. Patient states that he does not remember having any pain then, and he was able to walk back to the bedroom without any complications. Patient states that about 6:00 AM (3 hours later) he woke up and went to make coffee and was nearly unable to ambulate secondary to pain. TRAVEL OUTSIDE OF THE [place] IN LAST 30 DAYS: No - Related Data Allergies/Adverse Reactions: Penicillins Allergy (Severe, Verified 05/07/19 10:58) lisinopril Allergy (Verified 05/07/19 10:59) Past Medical History - General Information source: Patient - Social History Smoking Status: Former Smoker - quit in 2013 Cigarette use (# per day): No Frequency of alcohol use: None Drug Abuse: None Lives with: Family Family History: Reviewed & Not Pertinent Patient has homicidal ideation: No - Past Medical History Cardiac Medical History: Reports: Hx Hypercholesterolemia, Hx Hypertension Pulmonary Medical History: Reports: Hx COPD Endocrine Medical History: Reports: Hx Diabetes Mellitus Type 2 Musculoskeletal Medical History: Reports Hx Arthritis Past Surgical History: Reports: Hx Appendectomy, Hx Cholecystectomy - Immunizations Hx Diphtheria, Pertussis, Tetanus Vaccination: Yes Hx Pneumococcal Vaccination: 06/17/11 Review of Systems - Review of Systems Constitutional: No symptoms reported EENT: No symptoms reported Cardiovascular: No symptoms reported Respiratory: No symptoms reported Gastrointestinal: No symptoms reported Genitourinary: No symptoms reported Male Genitourinary: No symptoms reported Musculoskeletal: See HPI, Joint pain - right knee, Joint swelling - right knee Skin: No symptoms reported Hematologic/Lymphatic: No symptoms reported Neurological/Psychological: No symptoms reported -: Yes All other systems reviewed and negative Physical Exam - Vital signs Vitals: Temp Pulse Resp BP Pulse Ox 97.9 F 99 20 140/96 H 98 12/01/19 09:37 12/01/19 09:37 12/01/19 09:37 12/01/19 09:37 12/01/19 09:37 - General General appearance: Appears well, Alert In distress: None - HEENT Head: Normocephalic, Atraumatic Eyes: Normal Pupils: PERRL Neck: Normal - Respiratory Respiratory status: No respiratory distress - Cardiovascular Rhythm: Regular - Abdominal Inspection: Normal - Back Back: Normal - Extremities General upper extremity: Normal inspection General lower extremity: Other - The right knee shows a small joint effusion and some swelling over the superior patellar region. There is a very small scab with less than 1 cm of surrounding erythema to the upper anterior lateral area of the patella. The anterior knee does feel a little warm to touch. The knee is exquisitely tender to palpate over the superior and anterior patella regions. It is also tender to palpate medially and laterally behind the patella putting pressure into the joint space. Distal to the knee there is slight swelling of the leg, but there is no erythema, warmth, or tenderness. There is no tenderness to palpate the popliteal region of the knee. - Neurological Neuro grossly intact: Yes - Except some decreased sensation in the hands and the feet secondary to DPN. - Psychological Associated symptoms: Normal affect, Normal mood - Skin Skin Temperature: Warm Skin Moisture: Dry Skin Color: Normal Course - Re-evaluation Re-evalutation: 12/01/19 14:33 The patient's ESR is normal, the CRP is slightly elevated. The uric acid is 7.0, as it was when he was evaluated for foot problem last year. The physical exam suggest this may be a cellulitis developing to his anterior knee, however this could have just been a mechanical injury to the knee. - Vital Signs Vital signs: Temp Pulse Resp BP Pulse Ox 97.9 F 99 20 140/96 H 98 12/01/19 10:43 12/01/19 09:37 12/01/19 09:37 12/01/19 09:37 12/01/19 09:37 - Laboratory Result Diagrams: 12/01/19 12:12 12/01/19 12:12 Laboratory results interpreted by me: 12/01/19 12:12 Sodium 134.5 L Glucose 174 H C-Reactive Protein 14.0 H - Diagnostic Test Radiology reviewed: Image reviewed, Reports reviewed - Knee x-ray suggest a small joint effusion without osseous injury. Discharge - Discharge Clinical Impression: Cellulitis of right knee Condition: Stable Disposition: HOME, SELF-CARE Additional Instructions: Cellulitis You have an infection of your skin and underlying soft tissues called cellulitis. This is due to bacteria, which can enter through any break in the skin, or even through an irritated hair follicle. Untreated, cellulitis will usually worsen. Antibiotics are required. Usually, warm packs or warm soaks, and elevation of the infected area are recommended. You should start getting better within 24 to 36 hours. Most infections respond quickly to the right medication. Follow-up care is important, however, to check for abscess (boil) formation, unsuspected foreign body, or resistant infection. If you develop fever, chills, or if the area of infection is becoming rapidly more swollen or painful, call the doctor at once. Your examination today suggests you may have a mild cellulitis to the anterior right knee. There is also the possibility that this could be a mechanical injury. The management will be the same except we will provide antibiotics in case this is a cellulitis. Use the knee immobilizer to protect the knee and provide support and pain control. Take the doxycycline as prescribed. Take the pain medication as prescribed, if needed. Elevate your leg as much as possible, limit walking as much as possible. Follow-up with Dr. Giles at [facility] for surgery if not improving. Prescriptions: Doxycycline Hyclate 100 mg PO BID #20 tablet. Oxycodone HCl/Acetaminophen [Percocet 5-325 mg Tablet] 1 tab PO ASDIR PRN #15 tablet PRN Reason: Referrals: DIOR BURROWS DO [Primary Care Provider] - Follow up as needed UGO GILES MD [ACTIVE STAFF] - Follow up as needed I personally performed the services described in the documentation, reviewed and edited the documentation which was dictated to the scribe in my presence, and it accurately records my words and actions.
[2019-12-01 12:34] LABS: ABSOLUTE EOSINOPHILS # (AUTO) 0.2 10^3/uL (0.0-0.6); ABSOLUTE LYMPHOCYTES (AUTO) 1.6 10^3/uL (0.5-4.7); ABSOLUTE MONOCYTES (AUTO) 0.6 10^3/uL (0.1-1.4); ABSOLUTE NEUT (AUTO) 7.6 10^3/uL (1.7-8.2); BASOPHILS % (AUTO) 0.2 % (0-2); EOSINOPHILS % (AUTO) 1.9 % (0-6); HEMATOCRIT 44.4 % (37.9-51.0); LYMPHOCYTES % (AUTO) 15.7 % (13-45); MEAN CORPUSCULAR HEMOGLOBIN 29.9 pg (27.0-33.4); MEAN CORPUSCULAR HGB CONC 33.8 g/dL (32.0-36.0); MEAN CORPUSCULAR VOLUME 88 fl (80-97); MONOCYTES % (AUTO) 6.4 % (3-13); PLATELET COUNT 174 10^3/uL (150-450); RED BLOOD COUNT 5.03 10^6/uL (4.35-5.55); RED CELL DISTRIBUTION WIDTH 13.1 % (11.5-14.0); SEGMENTED NEUTROPHILS % (AUTO) 75.8 % (42-78); TOTAL CELLS COUNTED % (AUTO) 100 %; WHITE BLOOD COUNT 10.1 10^3/uL (4.0-10.5)
[2019-12-01 12:56] LABS: ALBUMIN 4.2 g/dL (3.5-5.0); ALKALINE PHOSPHATASE 78 U/L (38-126); ANION GAP 6 (5-19); ASPARTATE AMINO TRANSFERASE 20 U/L (17-59); BILIRUBIN,TOTAL 0.4 mg/dL (0.2-1.3); BLOOD UREA NITROGEN 18 mg/dL (7-20); CALCIUM 9.3 mg/dL (8.4-10.2); CARBON DIOXIDE 28 mmol/L (22-30); CHLORIDE 101 mmol/L (98-107); CREATINE KINASE 134 U/L (55-170); GLUCOSE 174 mg/dL (75-110); POTASSIUM 3.9 mmol/L (3.6-5.0); TOTAL PROTEIN 6.7 g/dL (6.3-8.2)
[2019-12-01 13:13] LABS: ERYTHROCYTE SEDIMENTATION RATE 10 mm/hr (0-20)
[2019-12-01 15:03] VITALS: BP 137/88
== END 2019-12-01 14:57 | disposition home or self-care (01) ==
LOC: ER 09:32
DX: L03.115 Cellulitis of right lower limb (principal); M25.561 Pain in right knee; J44.9 Chronic obstructive pulmonary disease, unspecified; I10 Essential (primary) hypertension; E11.9 Type 2 diabetes mellitus without complications; Z87.891 Personal history of nicotine dependence; Z88.0 Allergy status to penicillin; Z88.8 Allergy status to other drugs, medicaments and biological substances
CPT/HCPCS: 36415; 80053; 82550; 84550; 85025; 85652; 86140; 99283